=== PATIENT | female | born 1940 | race African-American/Black ===

== ENCOUNTER 2021-12-20 19:19 | Emergency (ER) | payer MEDICAID, MEDICARE ==
[~2021-12-20] VITALS: Ht 160 cm; Wt 53.3 kg
[2021-12-20 19:48] VITALS: BP 181/94
[2021-12-20] MEDS ORDERED: LOPERAMIDE HCL 2MG CAPSULE PO ONE (21:45)
[2021-12-20 23:32] LABS: HEMATOCRIT. 39.9 % (36.0-48.0); HEMOGLOBIN. 13.4 g/dL (12.0-16.0); MEAN CORPUSCULAR HEMOGLOBIN 28.8 pg (28.0-32.0); MEAN CORPUSCULAR VOLUME 85.7 fL (81.0-99.0); MEAN PLATELET VOLUME 9.9 fl (7.4-10.4); PLATELET 140 x1000/uL (130-400); RED BLOOD CELL COUNT 4.66 mill/uL (4.2-5.4); RED CELL DISTRIBUTION WIDTH 12.9 % (11.6-14.6)
[2021-12-20 23:38] LABS: CLARITY URINE CLEAR (CLEAR); COLOR URINE YELLOW (YELLOW); KETONES URINE 3+ (NEGATIVE); LEUKOCYTE ESTERASE URINE NEGATIVE (NEGATIVE); NITRITE URINE NEGATIVE (NEGATIVE); OCCULT BLOOD URINE 2+ (NEGATIVE); PROTEIN URINE 2+ (NEGATIVE); SPECIFIC GRAVITY URINE 1.022 (1.005-1.030)
[2021-12-20 23:41] LABS: CHLORIDE 103 mEq/L (98-107)
[2021-12-21] MEDS ORDERED: ACET-2708 MT (00:42)
[2021-12-21] MEDS ORDERED: POTASSIUM CHLORIDE 20MEQ TABLET SR PO NR (00:45)
[2021-12-21 03:55] LABS: PLATELET ESTIMATE NORMAL
== END 2021-12-21 01:03 | disposition home or self-care (01) ==
LOC: ER 20:17
DX: K85.90 Acute pancreatitis without necrosis or infection, unspecified (principal); R74.01 Elevation of levels of liver transaminase levels; I10 Essential (primary) hypertension
CPT/HCPCS: 36415; 74176; 80053; 81003; 85025; 99284